=== PATIENT | male | born 1980 | race African-American/Black ===

== ENCOUNTER 2018-08-10 12:29 | Emergency (ER) | payer OTHER ==
[~2018-08-10] VITALS: Ht 170.2 cm; Wt 90.7 kg
[2018-08-10] MEDS ORDERED: NKM (12:37)
--- NOTE | 2018-08-10 12:37 | NUR ---
ED Nurse Note: Shilo walked into ED c/o left scrotum swellign that started 2 days ago, patient denies any burning sensation upon urination. reports his pain /, came to ED because patient has found no relief. patient is alert and oriented x4, ambulatory with a steady gait, VSS
[2018-08-10 12:43] VITALS: BP 131/85
[2018-08-10] MEDS ORDERED: Lidocaine 1% MPF 10mg/ml 5ml INJ ONE (13:30)
--- NOTE | 2018-08-10 14:02 | Emergency Room Report ---
History of Present Illness General Chief Complaint: Male Urogenital Problems Source: Patient Present Illness HPI 38-year-old male presents to the emergency department complaining of 10 out of 10 in severity pain localized to the left testicle with swelling progressive 2 days. Patient denies penile discharge she denies fevers, chills, swollen tender lymph nodes, joint pain, abdominal pain, nausea or vomiting. Patient denies recent unprotected intercourse. Patient denies history of STI's. Patient denies trauma to the testicles he denies acute onset of pain. Denies erythema or rashes. Allergies: Coded Allergies: No Known Allergies (Unverified , 08/10/18) Patient History Past Medical History: see triage record Past Surgical History: none Pertinent Family History: none Reviewed Nursing Documentation: PMH: Agreed; PSxH: Agreed Nursing Documentation-PMH Past Medical History: No Stated History Review of Systems All Other Systems: negative except mentioned in HPI Physical Exam Vital Signs Date Time Temp Pulse Resp B/P (MAP) Pulse Ox O2 Delivery O2 Flow Rate FiO2 08/10/18 12:34 98.6 69 18 131/85 (100) 98 Room Air Sp02 EP Interpretation: reviewed, normal General Appearance: alert, GCS 15, non-toxic, mild distress Head: normocephalic, atraumatic Eyes: bilateral eye normal inspection, bilateral eye PERRL ENT: hearing grossly normal, normal voice Neck: full range of motion Respiratory: lungs clear, normal breath sounds, speaking full sentences Cardiovascular #1: regular rate, rhythm Gastrointestinal: normal bowel sounds, non tender, soft, non-distended, no guarding Genitourinary: normal inspection, no CVA tenderness, other - testicular swelling, mild tenderness, cremasteric reflex is present. positive phren sign Musculoskeletal: back normal, gait/station normal, normal range of motion, non- tender Neurologic: alert, oriented x3, responsive, motor strength/tone normal, sensory intact, speech normal, grossly normal Psychiatric: judgement/insight normal Skin: normal color, no rash, warm/dry, well hydrated Lymphatic: no adenopathy Medical Decision Making PA Attestation Dr. calvillo is my supervising Physician whom patient management has been discussed with. Diagnostic Impression: Primary Impression: Epididymitis Additional Impression: Hydrocele in adult ER Course 38-year-old male presents to the emergency department complaining of 10 out of 10 in severity pain localized to the left testicle with swelling progressive 2 days. Patient denies penile discharge she denies fevers, chills, swollen tender lymph nodes, joint pain, abdominal pain, nausea or vomiting. Patient denies recent unprotected intercourse. Patient denies history of STI's. Patient denies trauma to the testicles he denies acute onset of pain. Denies erythema or rashes. Ddx considered but are not limited to testicular torsion, epididymitis, orchitis , abscess, hernia Vital signs: are WNL, pt. is afebrile H&PE are most consistent with testicular torsion as cremasterics reflex is absent and then sign is negative there is no relief upon elevation ORDERS: - Testicular ultrasound:Good flow to the testes bilaterally, right testicle is small in size however notable at the [facility] as well hydrocele per echocardiography radiology technologist. See official radiology report for further details. ED INTERVENTIONS: - Rocephin IM -I do not identify an emergent condition at this time. With current presentation , pt. is stable for close outpatient follow up and conservative treatment. D/ w pt. to return promptly to ED with worsening or new symptoms.- Pt. verbalizes' understanding and agreement with proposed treatment plan.proposed treatment plan. DISCHARGE: At this time pt. is stable for d/c to home. Will provide printed patient care instructions, and any necessary prescriptions. Care plan and follow up instructions have been discussed with the patient prior to discharge. CT/MRI/US Diagnostic Results CT/MRI/US Diagnostic Results : Imaging Test Ordered: Testicular US Impression Good flow to the testes bilaterally, right testicle is small in size however notable at the [facility] as well hydrocele per echocardiography radiology technologist. See official radiology report for further details. Last Vital Signs Date Time Temp Pulse Resp B/P (MAP) Pulse Ox O2 Delivery O2 Flow Rate FiO2 08/10/18 12:43 98.6 72 18 131/85 98 Room Air Status: improved Disposition: HOME, SELF-CARE Condition: Stable Scripts Ibuprofen* (MOTRIN*) 600 Mg Tablet 600 MG ORAL THREE TIMES A DAY, #30 TAB 0 Refills Prov: Jennifer Weir 08/10/18 Doxycycline Hyclate* (VIBRAMYCIN*) 100 Mg Capsule 100 MG ORAL EVERY 12 HOURS for 7 Days, #14 CAP 0 Refills Prov: Jennifer Weir 08/10/18 Referrals: [facility],REFERRING (PCP) Patient Instructions: Hydrocele, Adult Additional Instructions: Take medications as directed. Follow up with a Primary Care Provider in 3-5 days, even if your symptoms have resolved. Return sooner to ED if new symptoms occur, or current symptoms become worse. - Please note that this Emergency Department Report was dictated using [employer] television console monitor technology software, occasionally this can lead to erroneous entry secondary to interpretation by the dictation equipment. Jennifer Weir Aug 10, 2018 14:02
[2018-08-10] MEDS ORDERED: IBUPROFEN600 MG ORAL (14:03)
[2018-08-10] MEDS ORDERED: VIBRAMYCIN100 MG ORAL (14:03)
[2018-08-10 14:11] VITALS: BP_SYST 126; BP_SYST 131; BP_DIAS 79; BP_DIAS 85
--- NOTE | 2018-08-10 14:11 | NUR ---
ER DISCHARGE NOTE: Patient is cleared to be discharged per ERMD, pt is aox4, on room air, with stable vital signs. pt was given dc and prescription instructions, pt was able to verbalize understanding, pt id band removed. pt is able to ambulate with steady gait. pt took all belongings.
--- NOTE | 2018-08-11 09:21 | Diagnostic Imaging Report ---
Indication:Scrotal pain Technique: Real time grayscale and duplex Doppler imaging of the scrotum performed. Comparison: None Findings: The size, contour, and echogenicitiy of the testis appear normal bilaterally. There is no testicular mass or evidence of torsion. There is good doppler evidence of blood flow within both testes. The left epididymis is enlarged and hypervascular compared to the right. There is a small left hydrocele. Findings consistent with left epididymitis. Right testis measures 4.8 x 2.3 x 3 cm. Left testis 4 x 2.8 x 3.3 cm. IMPRESSION: Left epididymitis. Hydrocele. No evidence of testicular torsion
== END 2018-08-10 14:11 | disposition home or self-care (01) ==
LOC: EMR 12:48
DX: N45.1 Epididymitis (principal); N43.3 Hydrocele, unspecified
CPT/HCPCS: 76870; 96372; 96374; 99284; J0696